=== PATIENT | male | born 1945 | race Caucasian/White ===

== ENCOUNTER 2021-11-10 12:30 | Emergency (ER) | payer OTHER ==
[~2021-11-10] VITALS: Ht 167.6 cm; Wt 55.0 kg
[2021-11-10 13:38] VITALS: BP 141/71
[2021-11-10] MEDS ORDERED: METH4PAK PO (13:43)
[2021-11-10] MEDS ORDERED: AZIT250T8 PO (13:43)
[2021-11-10] MEDS ORDERED: ALBU108A5 IN (13:44)
== END 2021-11-10 13:49 | disposition home or self-care (01) ==
LOC: ER 12:30
DX: U07.1 COVID-19 (principal); J20.8 Acute bronchitis due to other specified organisms
CPT/HCPCS: 36415; 71045; 93005